=== PATIENT | female | born 1935 | race Caucasian/White ===

== ENCOUNTER 2017-06-13 05:13 | Outpatient (CLI) | payer OTHER ==
[~2017-06-13 05:13] MED LIST: ACET-1025 PO; ASPI-611 PO; CHOL100044 PO; CRAN1CAP5 PO; DICL75TA5 PO; FLAX100031 PO; FLUT16SP2 BOTHNARES; LEVO150T PO; LISI-600 PO; MAGN500C16 PO; METF500T4 PO; MISO200T4 PO; MULT-342 PO; OSC500T PO; PER5325T PO; POLY119P2 PO; PREG50CA PO; RED600CA2 PO; ROPI0.252 PO; SOLI5TAB2 PO; THI100T PO; VITA400C65 PO
== END 2017-06-13 23:59 | disposition home or self-care (01) ==
LOC: DIABETIC 05:13
PROVIDERS: ATTEND Family Medicine
DX: E11.9 Type 2 diabetes mellitus without complications (principal); Z90.710 Acquired absence of both cervix and uterus
CPT/HCPCS: G0108

== ENCOUNTER 2017-09-12 01:15 | Outpatient (CLI) | payer OTHER | END 2017-09-12 23:59 | disposition home or self-care (01) | LOC: DIABETIC 01:15 | PROVIDERS: ATTEND Family Medicine | DX: E11.9 Type 2 diabetes mellitus without complications (principal) | CPT/HCPCS: G0108 ==

== ENCOUNTER 2017-12-13 04:05 | Outpatient (CLI) | payer OTHER ==
[~2017-12-13 04:05] MED LIST changes: +METF-436 PO; -METF500T4 PO
== END 2017-12-13 23:59 | disposition home or self-care (01) ==
LOC: DIABETIC 04:05
PROVIDERS: ATTEND Family Medicine
DX: E11.9 Type 2 diabetes mellitus without complications (principal); I10 Essential (primary) hypertension; Z79.899 Other long term (current) drug therapy
CPT/HCPCS: G0108

== ENCOUNTER 2018-06-20 01:53 | Outpatient (CLI) | payer MEDICARE | END 2018-06-20 23:59 | disposition home or self-care (01) | LOC: DIABETIC 01:53 | PROVIDERS: ATTEND Family Medicine | DX: E11.9 Type 2 diabetes mellitus without complications (principal); I10 Essential (primary) hypertension; Z79.899 Other long term (current) drug therapy; Z88.1 Allergy status to other antibiotic agents; Z88.8 Allergy status to other drugs, medicaments and biological substances; Z88.5 Allergy status to narcotic agent | CPT/HCPCS: G0108 ==

== ENCOUNTER 2018-09-19 01:13 | Outpatient (CLI) | payer MEDICARE | END 2018-09-19 23:59 | disposition home or self-care (01) | LOC: DIABETIC 01:13 | PROVIDERS: ATTEND Family Medicine | DX: E11.9 Type 2 diabetes mellitus without complications (principal); I10 Essential (primary) hypertension; Z79.82 Long term (current) use of aspirin; Z79.84 Long term (current) use of oral hypoglycemic drugs; Z90.710 Acquired absence of both cervix and uterus | CPT/HCPCS: G0108 ==

== ENCOUNTER 2019-01-02 02:04 | Outpatient (CLI) | payer MEDICARE | END 2019-01-02 23:59 | disposition home or self-care (01) | LOC: DIABETIC 02:04 | PROVIDERS: ATTEND Family Medicine | DX: E11.65 Type 2 diabetes mellitus with hyperglycemia (principal); Z79.899 Other long term (current) drug therapy; Z79.82 Long term (current) use of aspirin; Z79.84 Long term (current) use of oral hypoglycemic drugs; Z79.01 Long term (current) use of anticoagulants | CPT/HCPCS: G0108 ==

== ENCOUNTER 2019-04-03 03:14 | Outpatient (CLI) | payer MEDICARE ==
[~2019-04-03 03:14] MED LIST changes: +VITA-134 PO; -VITA400C65 PO
== END 2019-04-03 23:59 | disposition home or self-care (01) ==
LOC: DIABETIC 03:14
PROVIDERS: ATTEND Family Medicine
DX: E11.9 Type 2 diabetes mellitus without complications (principal)
CPT/HCPCS: G0108

== ENCOUNTER 2019-07-03 02:03 | Outpatient (CLI) | payer MEDICARE ==
[~2019-07-03 02:03] MED LIST changes: +METH1TAB32 PO
== END 2019-07-03 23:59 | disposition home or self-care (01) ==
LOC: DIABETIC 02:03
PROVIDERS: ATTEND Family Medicine
DX: E11.9 Type 2 diabetes mellitus without complications (principal)
CPT/HCPCS: G0108

== ENCOUNTER 2024-05-14 01:02 | Inpatient (IN) | payer MEDICARE, MEDICAID ==
[~2024-05-14] VITALS: Ht 157.5 cm; Wt 106.0 kg
[2024-05-14] VITALS (8 sets, daily range): BP systolic 97–127; BP diastolic 29–49; PULSE 77–89; RESP 14–27; TEMP 98.5; O2SAT 92–97
[~2024-05-14 01:02] MED LIST changes: -LISI-600 PO; +LISI20TA28 PO; -MAGN500C16 PO; +MAGN500C4 PO; -MISO200T4 PO; +MISO200T82 PO; -VITA-134 PO; +VITA-288 PO
[2024-05-14] MEDS: NORepinephrine 8mg/ 250ml NS 250 ML IV SCH ×2 (01:46→09:51)
[2024-05-14] MEDS ORDERED: SACC250C PO (02:15)
[2024-05-14] MEDS ORDERED: CHOL10006 PO (02:15)
[2024-05-14] MEDS ORDERED: ROPI0.2544 PO ×2 (02:15)
[2024-05-14] MEDS ORDERED: OXYB5TAB21 PO (02:15)
[2024-05-14] MEDS ORDERED: DOCU-396 PO (02:15)
[2024-05-14] MEDS ORDERED: DULA0.75 SUBCUT (02:15)
[2024-05-14] MEDS ORDERED: [UNRECOGNIZED DRUG - CODE] IV (02:15)
[2024-05-14] MEDS ORDERED: MAGN296S89 PO (02:15)
[2024-05-14] MEDS ORDERED: ESCI10TA PO (02:15)
[2024-05-14] MEDS ORDERED: DICL20GE TOP (02:15)
[2024-05-14] MEDS ORDERED: PREG50CA PO (02:15)
[2024-05-14] MEDS ORDERED: MISO100T53 PO (02:15)
[2024-05-14] MEDS ORDERED: GUAI200T5 PO (02:15)
[2024-05-14] MEDS ORDERED: IPRA3AMP31 IH (02:15)
[2024-05-14] MEDS ORDERED: METH-798 PO (02:15)
[2024-05-14] MEDS ORDERED: ENOX40SY7 SUBCUT (02:15)
[2024-05-14] MEDS ORDERED: CEFE2PIG2 IV (02:15)
[2024-05-14] MEDS ORDERED: MIRA25TA PO (02:15)
[2024-05-14] MEDS ORDERED: ATOR10TA87 PO (02:15)
[2024-05-14] MEDS ORDERED: GABA-530 PO (02:15)
[2024-05-14 02:19] LABS: BASOPHILS # (AUTO) 0.1 X10'3 (0-0.2); BASOPHILS % (AUTO) 0.7 % (0-1); EOSINOPHILS # (AUTO) 0.2 X10'3 (0-0.9); EOSINOPHILS % (AUTO) 1.9 % (0-6); HEMATOCRIT 33.7 % (35.0-45.0); HEMOGLOBIN 10.9 g/dl (12.0-16.0); LYMPHOCYTES # (AUTO) 0.5 X10'3 (1.1-4.8); LYMPHOCYTES % (AUTO) 4.5 % (21-51); MEAN CORPUSCULAR HEMOGLOBIN 26.3 PG (27.0-31.0); MEAN CORPUSCULAR HGB CONC 32.2 g/dL (33.0-36.5); MEAN CORPUSCULAR VOLUME 81.6 FL (78-98); MEAN PLATELET VOLUME 8.2 FL (7.4-10.4); MONOCYTES # (AUTO) 0.5 X10'3 (0-0.9); NEUTROPHILS # (AUTO) 10.8 X10'3 (1.8-7.7); NEUTROPHILS % (AUTO) 88.9 % (42-75); PLATELET COUNT 298 X10'3 (140-440); RED BLOOD COUNT 4.13 X10'6 (4.20-5.60); RED CELL DISTRIBUTION WIDTH 16.4 % (11.5-14.5); WHITE BLOOD COUNT 12.1 X10'3 (4.5-11.0)
[2024-05-14 02:27] LABS: ALANINE AMINOTRANSFERASE 33 U/L (12-78); ALBUMIN 2.7 G/DL (3.4-5.0); ALBUMIN/GLOBULIN RATIO 0.6 (1.1-1.5); ALKALINE PHOSPHATASE 180 IU/L (46-116); ANION GAP 7 (8-16); ASPARTATE AMINO TRANSFERASE 30 U/L (10-37); BILIRUBIN,TOTAL 0.5 MG/DL (0.1-1.0); BLOOD UREA NITROGEN 20 MG/DL (7-18); BUN/CREATININE RATIO 16.8 (10.0-20.0); CALCIUM 8.3 MG/DL (8.5-10.1); CHLORIDE 104 MMOL/L (99-107); CREATININE 1.19 MG/DL (0.40-0.90); GLUCOSE 134 MG/DL (70-104); SODIUM 138 MMOL/L (135-145); TOTAL CARBON DIOXIDE 27.2 MMOL/L (24-32); TOTAL PROTEIN 7.2 G/DL (6.4-8.2); eCRCL 27 ML/MIN; eGFR 43 ML/MIN
[2024-05-14 02:34] LABS: PRO BRAIN NATRIURETIC PEPTIDE 963 PG/ML (0-450)
[2024-05-14] MEDS: acetaminophen 325mg tablet PO ONE (04:29)
[2024-05-14] MEDS ORDERED: ondansetron/PF 4mg/2ml inj IV PRN ×2 (04:30→07:05)
[2024-05-14] MEDS ORDERED: potassium Cl 20 mEq SR tablet PO PRN (04:30)
[2024-05-14] MEDS ORDERED: mag hydrox/Alum hydrox/simeth 30ml oral suspension PO PRN (04:30)
[2024-05-14] MEDS ORDERED: magnesium Cl slow-release 64mg tablet PO PRN (04:30)
[2024-05-14] MEDS ORDERED: magnesium hydroxide 30ml (MOM) UD suspension PO PRN ×2 (04:30→07:05)
[2024-05-14] MEDS ORDERED: potassium Cl 40MEQ/1/2NS 520ml 520 ML IV PRN (04:30)
[2024-05-14] MEDS ORDERED: magnesium sulf-water 2g/50mL 50 ML IV PRN (04:30)
[2024-05-14 05:04] LABS: MAGNESIUM 1.3 MG/DL (1.5-2.4)
[2024-05-14 05:19] LABS: BILIRUBIN,URINE NEGATIVE (Neg); CLARITY,URINE SLIGHTLY CLOUDY (Clear); COLOR,URINE YELLOW (Yellow); GLUCOSE, URINE NEGATIVE (Neg); KETONES,URINE TRACE mg/dl (Neg); LEUKOCYTE ESTERASE ,URINE LARGE (Neg); NITRITES, URINE NEGATIVE (Neg); OCCULT BLOOD,URINE LARGE (Neg); PROTEIN,URINE 30 mg/dl (Neg); UA COLLECTION TYPE FOLEY CATH; UROBILINOGEN,URINE 0.2 E.U/dL (0.2-1.0)
[2024-05-14 05:22] LABS: BACTERIA,URINE FEW /HPF (Neg); RBC,URINE TNTC /HPF (0-2); SQUAMOUS EPITHELIAL CELL,UR FEW /LPF (FEW); WBC,URINE 30-50 /HPF (0-4)
[2024-05-14] MEDS: normal saline 1000ml 1,000 ML IV SCH (06:30)
[2024-05-14] MEDS ORDERED: acetaminophen 325mg tablet PO PRN ×2 (07:05)
[2024-05-14] MEDS ORDERED: morphine 4 MG/ML inj SYRINge IV PRN (07:05)
[2024-05-14] MEDS ORDERED: morphine 2 MG/ML inj. syringe IV PRN (07:05)
[2024-05-14] MEDS ORDERED: glucagon, human recombinant 1mg kit SUBCUT PRN (07:15)
[2024-05-14] MEDS ORDERED: dextrose 50%-water 50ml dispensing syringe IV PRN ×2 (07:15)
[2024-05-14] MEDS ORDERED: DEXTROSE 15 GM of carb/4 tabs (each vial/BOTTLE has 4 tablets) PO PRN ×2 (07:15)
[2024-05-14 07:31] LABS: OXYGEN SATURATION (MIXED VEN) 75.9 % (60-80); PO2 MIXED VENOUS (TEMP COR) 38.2 mmHg (35-46)
[2024-05-14] MEDS: LidoCAINE 2% Topical Jelly 11mL syringe (UROJET) TOP ONE (07:39)
[2024-05-14] MEDS: normal saline 1000ml 1,000 ML IV ONE (07:54)
[2024-05-14] MEDS: K and/or MAG REPLACEMENT MC SCH (08:00)
[2024-05-14] MEDS: INSULIN LISPRO 100 UNIT/ML INSULN.PEN MULTI-DOSE SQ SCH ×2 (08:17→12:00)
[2024-05-14] MEDS: CEFEPIME 2gm in D5W 50mL 50 ML IV SCH (08:52)
[2024-05-14] MEDS: docusate sod 100mg capsule PO SCH (10:55)
[2024-05-14] MEDS: ringers solution, lacted 1,000 ML IV ONE (10:55)
[2024-05-14] MEDS: heparin, porcine 5000 units/ml vial SQ SCH (10:56)
[2024-05-14] MEDS: acetaminophen 325mg tablet PO PRN ×2 (11:22→20:39)
[2024-05-14] MEDS ORDERED: OXYB-58 PO (12:05)
[2024-05-14] MEDS: DULAGLUTIDE 0.75 MG/0.5 ML SQ SCH (15:15)
[2024-05-14] MEDS ORDERED: METHOCARBAMOL 750 MG PO PRN (15:15)
[2024-05-14] MEDS: magnesium sulf-water 4G/100mL 100 ML IV PRN (17:39)
[2024-05-14] MEDS: gabapentin 100mg capsule PO SCH (20:06)
[2024-05-14] MEDS: guaiFENesin 200 MG/10 ML oral syrup UD cup PO PRN (20:06)
[2024-05-14] MEDS: insulin glargine (Lantus) pen - multi-dose SQ SCH (20:07)
[2024-05-14] MEDS: pregabalin 25mg capsule PO SCH (20:07)
[2024-05-14] MEDS: ROPINIRole 0.25mg tablet PO PRN (20:40)
[2024-05-15] VITALS (11 sets, daily range): BP systolic 131–161; BP diastolic 49–74; PULSE 64–81; RESP 12–22; TEMP 97.4–98.1; O2SAT 94–98
[2024-05-15 06:45] LABS: BASOPHILS # (AUTO) 0.1 X10'3 (0-0.2); BASOPHILS % (AUTO) 0.9 % (0-1); EOSINOPHILS % (AUTO) 10.4 % (0-6); HEMATOCRIT 29.6 % (35.0-45.0); HEMOGLOBIN 9.6 g/dl (12.0-16.0); LYMPHOCYTES % (AUTO) 10.1 % (21-51); MEAN CORPUSCULAR HEMOGLOBIN 26.8 PG (27.0-31.0); MEAN CORPUSCULAR HGB CONC 32.5 g/dL (33.0-36.5); MEAN CORPUSCULAR VOLUME 82.3 FL (78-98); MEAN PLATELET VOLUME 8.2 FL (7.4-10.4); MONOCYTES # (AUTO) 0.8 X10'3 (0-0.9); MONOCYTES % (AUTO) 8.3 % (2-12); NEUTROPHILS # (AUTO) 6.8 X10'3 (1.8-7.7); NEUTROPHILS % (AUTO) 70.3 % (42-75); PLATELET COUNT 225 X10'3 (140-440); RED CELL DISTRIBUTION WIDTH 16.7 % (11.5-14.5); WHITE BLOOD COUNT 9.6 X10'3 (4.5-11.0)
[2024-05-15 06:57] LABS: ALANINE AMINOTRANSFERASE 42 U/L (12-78); ALBUMIN 2.2 G/DL (3.4-5.0); ALBUMIN/GLOBULIN RATIO 0.5 (1.1-1.5); ALKALINE PHOSPHATASE 204 IU/L (46-116); ANION GAP 10 (8-16); ASPARTATE AMINO TRANSFERASE 45 U/L (10-37); BILIRUBIN,TOTAL 0.3 MG/DL (0.1-1.0); BLOOD UREA NITROGEN 11 MG/DL (7-18); BUN/CREATININE RATIO 15.7 (10.0-20.0); CHLORIDE 103 MMOL/L (99-107); GLUCOSE 101 MG/DL (70-104); MAGNESIUM 2.2 MG/DL (1.5-2.4); POTASSIUM 3.6 MMOL/L (3.5-5.1); SODIUM 134 MMOL/L (135-145); TOTAL CARBON DIOXIDE 20.9 MMOL/L (24-32); TOTAL PROTEIN 6.3 G/DL (6.4-8.2); eCRCL 43 ML/MIN; eGFR 79 ML/MIN
[2024-05-15] MEDS: (Mirabegron (Myrbetriq) 25 MG) PO SCH (08:00)
[2024-05-15] MEDS: ROPINIRole 0.25mg tablet PO SCH (08:00)
[2024-05-15] MEDS: atorvastatin 10mg tablet PO SCH (08:37)
[2024-05-15] MEDS: ESCITALOPRAM 10 mg tablet 10 MG TABLET PO SCH (08:37)
[2024-05-15] MEDS: aspirin 81mg, enteric-coated 1 TAB TABLET.DR PO SCH (08:37)
[2024-05-15] MEDS: levoTHYROXINE 75mcg tablet PO SCH (08:37)
[2024-05-15] MEDS: cholecalciferol (vitamin D3) 1,000 unit (25mcg) tablet PO SCH (08:38)
[2024-05-15] MEDS: oxybutynin 5mg tablet PO SCH (08:39)
[2024-05-15] MEDS: fluticasone nasal spray 16GM bottle NS SCH (08:43)
[2024-05-15] MEDS: cefepime 1GM in D5W 50mL 50 ML IV SCH (08:44)
[2024-05-15] MEDS: DICLOFENAC SODIUM 1% gel 1 APPLIC APPLIC TP SCH (08:44)
[2024-05-15] MEDS ORDERED: benzonatate 100mg capsule PO PRN (11:05)
[2024-05-16] VITALS (11 sets, daily range): BP systolic 135–165; BP diastolic 48–74; PULSE 55–74; RESP 14–23; TEMP 97.2–98.6; O2SAT 92–98
[2024-05-16] MEDS: ipratropium/albuterol 3ml nebule IH PRN (04:29)
[2024-05-16 06:34] LABS: BASOPHILS # (AUTO) 0.1 X10'3 (0-0.2); BASOPHILS % (AUTO) 1.1 % (0-1); EOSINOPHILS # (AUTO) 0.9 X10'3 (0-0.9); EOSINOPHILS % (AUTO) 10.8 % (0-6); LYMPHOCYTES # (AUTO) 1.1 X10'3 (1.1-4.8); LYMPHOCYTES % (AUTO) 13.1 % (21-51); MEAN CORPUSCULAR HEMOGLOBIN 26.7 PG (27.0-31.0); MEAN CORPUSCULAR HGB CONC 33.2 g/dL (33.0-36.5); MEAN CORPUSCULAR VOLUME 80.3 FL (78-98); MEAN PLATELET VOLUME 8.1 FL (7.4-10.4); MONOCYTES # (AUTO) 0.8 X10'3 (0-0.9); MONOCYTES % (AUTO) 9.6 % (2-12); NEUTROPHILS # (AUTO) 5.3 X10'3 (1.8-7.7); NEUTROPHILS % (AUTO) 65.4 % (42-75); PLATELET COUNT 239 X10'3 (140-440); RED BLOOD COUNT 3.36 X10'6 (4.20-5.60); RED CELL DISTRIBUTION WIDTH 16.6 % (11.5-14.5); WHITE BLOOD COUNT 8.1 X10'3 (4.5-11.0)
[2024-05-16 08:59] LABS: ALANINE AMINOTRANSFERASE 47 U/L (12-78); ALBUMIN 1.9 G/DL (3.4-5.0); ALBUMIN/GLOBULIN RATIO 0.5 (1.1-1.5); ALKALINE PHOSPHATASE 223 IU/L (46-116); ANION GAP 4 (8-16); ASPARTATE AMINO TRANSFERASE 34 U/L (10-37); BILIRUBIN,TOTAL 0.3 MG/DL (0.1-1.0); BLOOD UREA NITROGEN 6 MG/DL (7-18); CALCIUM 7.3 MG/DL (8.5-10.1); CHLORIDE 107 MMOL/L (99-107); CREATININE 0.67 MG/DL (0.40-0.90); GLUCOSE 103 MG/DL (70-104); MAGNESIUM 1.5 MG/DL (1.5-2.4); POTASSIUM 3.3 MMOL/L (3.5-5.1); SODIUM 139 MMOL/L (135-145); TOTAL CARBON DIOXIDE 27.6 MMOL/L (24-32); TOTAL PROTEIN 5.9 G/DL (6.4-8.2); eCRCL 45 ML/MIN; eGFR 83 ML/MIN
[2024-05-16] MEDS: potassium Cl 20 mEq SR tablet PO PRN (11:25)
[2024-05-17 02:00] VITALS: BP 172/85; PULSE 66; RESP 18; TEMP 97; O2SAT 95
[2024-05-17 06:00] VITALS: BP 177/74; PULSE 65; RESP 20; TEMP 97.8; O2SAT 93
[2024-05-17 07:43] LABS: BASOPHILS # (AUTO) 0.1 X10'3 (0-0.2); BASOPHILS % (AUTO) 1.2 % (0-1); EOSINOPHILS % (AUTO) 11.4 % (0-6); HEMATOCRIT 27.8 % (35.0-45.0); HEMOGLOBIN 9.2 g/dl (12.0-16.0); LYMPHOCYTES # (AUTO) 1.2 X10'3 (1.1-4.8); LYMPHOCYTES % (AUTO) 14.4 % (21-51); MEAN CORPUSCULAR HEMOGLOBIN 26.6 PG (27.0-31.0); MEAN CORPUSCULAR HGB CONC 33.2 g/dL (33.0-36.5); MEAN CORPUSCULAR VOLUME 79.9 FL (78-98); MEAN PLATELET VOLUME 7.9 FL (7.4-10.4); MONOCYTES # (AUTO) 0.7 X10'3 (0-0.9); MONOCYTES % (AUTO) 8.3 % (2-12); NEUTROPHILS # (AUTO) 5.5 X10'3 (1.8-7.7); NEUTROPHILS % (AUTO) 64.7 % (42-75); PLATELET COUNT 268 X10'3 (140-440); RED BLOOD COUNT 3.47 X10'6 (4.20-5.60); RED CELL DISTRIBUTION WIDTH 16.3 % (11.5-14.5); WHITE BLOOD COUNT 8.5 X10'3 (4.5-11.0)
[2024-05-17 08:00] VITALS: RESP 18; O2SAT 94
[2024-05-17 08:52] LABS: ALANINE AMINOTRANSFERASE 41 U/L (12-78); ALBUMIN 2.1 G/DL (3.4-5.0); ALBUMIN/GLOBULIN RATIO 0.5 (1.1-1.5); ALKALINE PHOSPHATASE 218 IU/L (46-116); ANION GAP 6 (8-16); ASPARTATE AMINO TRANSFERASE 24 U/L (10-37); BILIRUBIN,TOTAL 0.3 MG/DL (0.1-1.0); BLOOD UREA NITROGEN 6 MG/DL (7-18); CALCIUM 7.8 MG/DL (8.5-10.1); CHLORIDE 105 MMOL/L (99-107); CREATININE 0.67 MG/DL (0.40-0.90); GLUCOSE 105 MG/DL (70-104); MAGNESIUM 1.4 MG/DL (1.5-2.4); POTASSIUM 3.9 MMOL/L (3.5-5.1); SODIUM 139 MMOL/L (135-145); THYROID STIMULATING HORMONE 5.27 ulU/ml (0.34-4.50); TOTAL CARBON DIOXIDE 27.9 MMOL/L (24-32); TOTAL PROTEIN 6.2 G/DL (6.4-8.2); eCRCL 45 ML/MIN; eGFR 83 ML/MIN
[2024-05-17] MEDS ORDERED: cloNIDine 0.1 mg tablet PO PRN (08:55)
[2024-05-17] MEDS ORDERED: hydrALAZINE 20mg/ml inj. IV PRN (08:55)
[2024-05-17] MEDS: amLODIPine 5mg tablet PO SCH (10:14)
[2024-05-17 10:17] VITALS: PULSE 16; RESP 20; O2SAT 97
[2024-05-17 11:00] VITALS: BP 146/62; PULSE 75; RESP 16; TEMP 98.6; O2SAT 94
[2024-05-17] MEDS ORDERED: magnesium Cl slow-release 64mg tablet PO PRN (13:15)
[2024-05-17] MEDS ORDERED: magnesium sulf-water 4G/100mL 100 ML IV PRN (13:15)
[2024-05-17] MEDS ORDERED: magnesium sulf-water 2g/50mL 50 ML IV PRN (13:15)
[2024-05-17] MEDS ORDERED: potassium Cl 40MEQ/1/2NS 520ml 520 ML IV PRN (13:15)
[2024-05-17] MEDS ORDERED: potassium Cl 20 mEq SR tablet PO PRN ×2 (13:15)
[2024-05-17] MEDS ORDERED: lactose-reduced food (Ensure Enlive) - 237ml bottle PO SCH (17:30)
[2024-05-17] MEDS ORDERED: K and/or MAG REPLACEMENT MC SCH (20:00)
== END 2024-05-17 14:44 | DRG 871 ==
LOC: ER 01:03 → ED HOLD 04:33 → UNDOADMIN 04:33 → ED HOLD 07:07 → CICU 2S 08:40 → ED HOLD 08:40 → CICU 2S 05-15 00:03 → PCU 3S 05-15 00:03
PROVIDERS: ADMIT Internal Medicine Sleep Medicine; ATTEND Family Medicine
PROC: BW211ZZ Computerized Tomography (CT Scan) of Abdomen and Pelvis using Low Osmolar Contrast (ICD-10-PCS; 2024-05-14)
PROC: 05HD33Z Insertion of Infusion Device into Right Cephalic Vein, Percutaneous Approach (ICD-10-PCS; principal; 2024-05-17)
DX: A41.9 Sepsis, unspecified organism (principal); N17.0 Acute kidney failure with tubular necrosis; R65.21 Severe sepsis with septic shock; N10 Acute pyelonephritis; Z16.24 Resistance to multiple antibiotics; Z68.42 Body mass index [BMI] 45.0-49.9, adult; B96.1 Klebsiella pneumoniae [K. pneumoniae] as the cause of diseases classified elsewhere; E11.42 Type 2 diabetes mellitus with diabetic polyneuropathy; Z66 Do not resuscitate; E03.9 Hypothyroidism, unspecified; E78.5 Hyperlipidemia, unspecified; D64.9 Anemia, unspecified; G47.30 Sleep apnea, unspecified; I10 Essential (primary) hypertension; R29.6 Repeated falls; E66.01 Morbid (severe) obesity due to excess calories; E86.0 Dehydration; G89.29 Other chronic pain; Z88.8 Allergy status to other drugs, medicaments and biological substances; Z88.1 Allergy status to other antibiotic agents; Z79.84 Long term (current) use of oral hypoglycemic drugs; Z79.82 Long term (current) use of aspirin; Z79.899 Other long term (current) drug therapy
CPT/HCPCS: 36410; 36415; 70450; 71045; 74176; 76937; 80053; 81001; 82810; 82948; 83036; 83605; 83735; 83880; 84132; 84145; 84443; 84484; 85025; 87081; 87088; 93005; 94640; 94760; 97110; 97161; 97535; 99291; A4333; A6213; A6258; A6449; C1751; G0378; J0692; J1644; J1815; J3475; J7030; J7040; J7120